=== PATIENT | female | born 1960 | race Caucasian/White ===

== ENCOUNTER 2017-06-15 12:20 | Inpatient (IN) | payer MEDICARE, MEDICAID ==
[~2017-06-15] VITALS: Ht 162.6 cm; Wt 65.0 kg
[2017-06-15] VITALS (7 sets, daily range): BP systolic 73–144; BP diastolic 50–82; PULSE 86–118; RESP 16–20; TEMP 96.8–98.9; O2SAT 94–97
[~2017-06-15 12:20] MED LIST: DICL75 PO; ZOFR4TAB3 SL
[2017-06-15] MEDS ORDERED: HYDR-3133 PO (12:33)
[2017-06-15] MEDS ORDERED: SODIUM CHLOR 0.9% 1000 ML INJ 1,000 ML IV ONE (12:36)
[2017-06-15] MEDS ORDERED: HYDR-3583 PO (12:42)
[2017-06-15] MEDS ORDERED: LORA0.5T PO (12:42)
[2017-06-15] MEDS ORDERED: SODIUM CHLORIDE 0.9% FLUSH 10 ML FLUSH IVF PRN (12:45)
--- NOTE | 2017-06-15 13:05 | RADRPT ---
EXAM DATE/TIME: 06/15/2017 12:57 [place] COMPARISON: Report only CT BRAIN W/O CONTRAST, February 20, 2013, 13:57. INDICATIONS : Trauma; fall. RADIATION DOSE: 42.43 CTDIvol (mGy) MEDICAL HISTORY : Stroke. Cardiovascular disease SURGICAL HISTORY : Hysterectomy. Cholecystectomy. ENCOUNTER: Initial ACUITY: 1 day PAIN SCALE: 5/10 LOCATION: Frontal lobe infarct again noted. cranial TECHNIQUE: Multiple contiguous axial images were obtained of the head. Using automated exposure control and adj ustment of the mA and/or kV according to patient size, radiation dose was kept as low as reasonably a chievable to obtain optimal diagnostic quality images. DICOM format image data is available electro nically for review and comparison. FINDINGS: CEREBRUM: The ventricles are normal for age. No evidence of midline shift, mass lesion, hemorrhage or acute in farction. No extra-axial fluid collections are seen. POSTERIOR FOSSA: The cerebellum and brainstem are intact. The 4th ventricle is midline. The cerebellopontine angle i s unremarkable. EXTRACRANIAL: The visualized portion of the orbits is intact. SKULL: The calvaria is intact. No evidence of skull fracture. CONCLUSION: No bleed or other acute intracranial abnormality. Old right frontal lobe infarct. Randall Cruz MD on June 15, 2017 at 13:02 Board Certified Radiologist. This report was verified electronically.
[2017-06-15 13:25] LABS: AUTOMATED NEUTROPHIL # 16.6 TH/MM3 (1.8-7.7); BASOPHIL % 0.2 % (0.0-2.0); EOSINOPHIL % 0.1 % (0.0-4.0); HEMATOCRIT 50.3 % (35.0-46.0); HEMOGLOBIN 18.2 GM/DL (11.6-15.3); LYMPH % 11.1 % (9.0-44.0); LYMPHOCYTE # 2.3 TH/MM3 (1.0-4.8); MEAN CELL VOLUME 83.9 FL (80.0-100.0); MEAN CORPUSCULAR HEMOGLOBIN 30.3 PG (27.0-34.0); MEAN PLATELET VOLUME 7.9 FL (7.0-11.0); MONO % 8.1 % (0.0-8.0); MONOCYTE # 1.7 TH/MM3 (0-0.9); NEUT % 80.5 % (16.0-70.0); PLATELET COUNT 313 TH/MM3 (150-450); RED CELL DISTRIBUTION WIDTH 12.9 % (11.6-17.2); WHITE BLOOD COUNT 20.6 TH/MM3 (4.0-11.0)
[2017-06-15 13:26] LABS: MEAN CORPUSCULAR HGB CONC 36.1 % (32.0-36.0)
[2017-06-15 13:28] LABS: PROTHROMBIN TIME - PATIENT 10.7 SEC (9.8-11.6)
[2017-06-15 13:59] LABS: ALBUMIN 3.8 GM/DL (3.4-5.0); ALKALINE PHOSPHATASE 58 U/L (45-117); ALT (GPT) 37 U/L (10-53); AST (GOT) 41 U/L (15-37); BICARBONATE 32.2 MEQ/L (21.0-32.0); BLOOD UREA NITROGEN 45 MG/DL (7-18); CALCIUM 9.2 MG/DL (8.5-10.1); CHLORIDE 72 MEQ/L (98-107); CREATININE 2.61 MG/DL (0.50-1.00); GLOMERULAR FILTRATION RATE 19 ML/MIN (>89); GLUCOSE,RANDOM 111 MG/DL (74-106); TOTAL BILIRUBIN ADULT 0.5 MG/DL (0.2-1.0); TOTAL PROTEIN 8.4 GM/DL (6.4-8.2); TROPONIN I LESS THAN 0.02 NG/ML (0.02-0.05)
[2017-06-15 14:20] LABS: SODIUM (NA) 117 MEQ/L (136-145)
[2017-06-15 14:41] LABS: BILIRUBIN, URINE NEG (NEG); BLOOD, URINE TRACE (NEG); GLUCOSE,URINE NEG (NEG); HYALINE CAST, URINE 20 /lpf (RARE); KETONE, URINE NEG (NEG); NITRITE,URINE NEG (NEG); SQUAMOUS EPITHELIAL CELL URINE <1 /hpf (0-5); URINE COLOR YELLOW (YELLW/STRAW); URINE LEUKOCYTE ESTERASE NEG (NEG)
[2017-06-15] MEDS ORDERED: NS + KCL 40 MEQ INJ 1,000 ML IV SCH (14:45)
--- NOTE | 2017-06-15 15:17 | PD ---
HPI Chief Complaint: Fall Time Seen by Provider: 12:29 Travel History International Travel<30 days: No Contact w/Intl Traveler<30days: No Traveled to known affect area: No History of Present Illness HPI 56-year-old female presents to the emergency room for evaluation of generalized weakness for the past week. Patient states she has been falling about 6 times per day. She especially feels weak after going from seated to standing position. She denies any syncopal episodes but states occasionally after falling and hitting her head, she will pass out for a second or 2. Patient denies any headache, abdominal pain, or chest pain. Denies IV drug use, upper or lower extremity paresthesias, saddle anesthesia, or loss of bowel or bladder control. She reports nausea and vomiting and has had difficulty eating over the past week. She normally ambulates with a cane because of chronic back pain. Patient takes lorazepam, Lortab, and hydroxyzine for pain. Denies any other chronic medical conditions or daily medications. PCP is Dr. Strickland. Denies history of cancer. States her sister from cancer of unknown type. Denies illicit drug use. Denies recent alcohol use; "it's been months." She does smoke cigarettes. PFSH Past Medical History Arthritis: Yes Anxiety: Yes Cardiovascular Problems: Yes Cerebrovascular Accident: Yes (1990) Diabetes: No Diminished Hearing: No GERD: Yes Genitourinary: Yes (KIDNEY STONES REMOVED ) Insomnia: Yes Kidney Stones: Yes Medical other: Yes (CHRONIC BACK PAIN) Immunizations Current: No Tetanus Vaccination: Unknown ?: Not Menopausal: Yes : 3 Para: 3 Past Surgical History Cholecystectomy: Yes Genitourinary Surgery: Yes (GALLSTONES REMOVED) Hysterectomy: Yes Social History Alcohol Use: No (QUIT) Tobacco Use: Yes Substance Use: No Allergies-Medications (Allergen,Severity, Reaction): Coded Allergies: clonazepam (Unverified Allergy, Mild, WELROSA, 03/25/17) Reported Meds & Prescriptions Reported Meds & Active Scripts Active Reported Hydrocodone-Acetaminophen 10-325 mg Tab 1 Tab PO Q6H PRN Lorazepam 0.5 Mg Tab 0.5 Mg PO Q8H PRN Hydroxyzine HCl 25 Mg Tab 25 Mg PO QID Review of Systems Except as stated in HPI: all other systems reviewed are Neg Physical Exam Narrative GENERAL: Well-nourished, well-developed female in no acute distress. Afebrile. Ambulatory with a cane. SKIN: Focused skin assessment warm/dry. Superficial abrasion to the nose. Abrasions to bilateral hands. HEAD: Normocephalic. EYES: No scleral icterus. No injection or drainage. NECK: Supple, trachea midline. No JVD or lymphadenopathy. CARDIOVASCULAR: Regular rate and rhythm without murmurs, gallops, or rubs. RESPIRATORY: Breath sounds equal bilaterally. No accessory muscle use. GASTROINTESTINAL: Abdomen soft, non-tender, nondistended. Data Data Last Documented VS Vital Signs Date Time Temp Pulse Resp B/P (MAP) Pulse Ox O2 Delivery O2 Flow Rate FiO2 06/15/17 15:20 98.3 96 20 111/59 (76) 97 Room Air Orders Orders Ct Brain W/O Iv Contrast(Rout) (06/15/17 ) Electrocardiogram (06/15/17 ) Complete Blood Count With Diff (06/15/17 12:36) Comprehensive Metabolic Panel (06/15/17 12:36) Ckmb (Isoenzyme) Profile (06/15/17 12:36) Troponin I (06/15/17 12:36) Act Partial Throm Time (Ptt) (06/15/17 12:36) Prothrombin Time / Inr (Pt) (06/15/17 12:36) Urinalysis - C+S If Indicated (06/15/17 12:36) Ecg Monitoring (06/15/17 12:36) Iv Access Insert/Monitor (06/15/17 12:36) Oximetry (06/15/17 12:36) Sodium Chloride 0.9% Flush (Ns Flush) (06/15/17 12:45) Sodium Chlor 0.9% 1000 Ml Inj (Ns 1000 M (06/15/17 12:36) Orthostatic Vital Signs (06/15/17 12:36) Alcohol (Ethanol) (06/15/17 13:15) CKMB (06/15/17 12:55) CKMB% (06/15/17 12:55) Ns + Kcl 40 Meq Inj (Ns + Kcl 40 Meq Inj (06/15/17 14:45) Admit Order (Ed Use Only) (06/15/17 15:38) Labs Laboratory Tests Test 06/15/17 12:55 06/15/17 14:17 White Blood Count 20.6 TH/MM3 Red Blood Count 6.00 MIL/MM3 Hemoglobin 18.2 GM/DL Hematocrit 50.3 % Mean Corpuscular Volume 83.9 FL Mean Corpuscular Hemoglobin 30.3 PG Mean Corpuscular Hemoglobin Concent 36.1 % Red Cell Distribution Width 12.9 % Platelet Count 313 TH/MM3 Mean Platelet Volume 7.9 FL Neutrophils (%) (Auto) 80.5 % Lymphocytes (%) (Auto) 11.1 % Monocytes (%) (Auto) 8.1 % Eosinophils (%) (Auto) 0.1 % Basophils (%) (Auto) 0.2 % Neutrophils # (Auto) 16.6 TH/MM3 Lymphocytes # (Auto) 2.3 TH/MM3 Monocytes # (Auto) 1.7 TH/MM3 Eosinophils # (Auto) 0.0 TH/MM3 Basophils # (Auto) 0.0 TH/MM3 CBC Comment AUTO DIFF Differential Comment AUTO DIFF CONFIRMED Prothrombin Time 10.7 SEC Prothromb Time International Ratio 1.0 RATIO Activated Partial Thromboplast Time 25.9 SEC Blood Urea Nitrogen 45 MG/DL Creatinine 2.61 MG/DL Random Glucose 111 MG/DL Total Protein 8.4 GM/DL Albumin 3.8 GM/DL Calcium Level 9.2 MG/DL Alkaline Phosphatase 58 U/L Aspartate Amino Transf (AST/SGOT) 41 U/L Alanine Aminotransferase (ALT/SGPT) 37 U/L Total Bilirubin 0.5 MG/DL Sodium Level 117 MEQ/L Potassium Level 2.8 MEQ/L Chloride Level 72 MEQ/L Carbon Dioxide Level 32.2 MEQ/L Anion Gap 13 MEQ/L Estimat Glomerular Filtration Rate 19 ML/MIN Total Creatine Kinase 107 U/L Creatine Kinase MB 1.7 NG/ML Troponin I LESS THAN 0.02 NG/ML Ethyl Alcohol Level LESS THAN 3 MG/DL Urine Color YELLOW Urine Turbidity CLEAR Urine pH 5.0 Urine Specific [place] 1.009 Urine Protein NEG mg/dL Urine Glucose (UA) NEG mg/dL Urine Ketones NEG mg/dL Urine Occult Blood TRACE Urine Nitrite NEG Urine Bilirubin NEG Urine Urobilinogen LESS THAN 2.0 MG/DL Urine Leukocyte Esterase NEG Urine RBC 1 /hpf Urine WBC 1 /hpf Urine Squamous Epithelial Cells <1 /hpf Urine Hyaline Casts 20 /lpf Microscopic Urinalysis Comment CATH-CULT NOT IND MDM Medical Decision Making Medical Screen Exam Complete: Yes Emergency Medical Condition: Yes Medical Record Reviewed: Yes Differential Diagnosis Electrolytes abnormality, stroke, weakness, dehydration, vertigo, orthostatic hypotension Narrative Course 56-year-old female with history of chronic low back pain presents to the emergency room for evaluation of generalized weakness and increased falls over the past week. Patient normally ambulates with a cane. States she has been falling about 6 times per day. Denies any syncopal episodes. Reports occasional, short LOC when hitting her head after falling. No focal neurological deficits. No red flag symptoms for back pain. Abdomen soft, nontender. Vital signs stable. IV access established and basic labs obtained. There is significant drop in blood pressure upon standing: from 130/65 to 73/ 50. Patient was given 1 L normal saline. CBC shows probable hemoconcentration. CMP is remarkable for severe hyponatremia and hypokalemia. Patient was given second liter normal saline with potassium. From previous, she has had marked increase in creatinine. With elevated BUN, she has prerenal azotemia causing acute kidney injury. Troponin and CK-MB are unremarkable. Alcohol is less than 3. UA is unremarkable. Patient will be admitted for severe dehydration. She understands and agrees to plan. Physician Communication Physician Communication I spoke to Dr. Reese who agrees to admit this patient to her service. Diagnosis Primary Impression: Hypokalemia Additional Impression: Hyponatremia Admitting Information Admitting Physician Requests: Admit Condition: Stable Sharmin Campbell Jun 15, 2017 15:17
--- NOTE | 2017-06-15 15:35 | PD ---
Physical Exam Date Seen by Provider: Jun 15, 2017 Time Seen by Provider: 14:00 Narrative I, Dr. Lee, have reviewed the advance practice practitioner's documentation and am in agreement, met with the patient face to face, made the diagnosis, and the medical decision making was done by me. *My assessment and Findings: Patient seen and evaluated with PA, please see PA note for further details. She presents to the ER today with general weakness, nausea, vomiting, has not been eating well. Please see PA note for further details. On exam, she is in mild distress, heart and lung exams are unremarkable. Abdomen exam is benign, soft, nontender to palpation. Laboratory Tests Test 06/15/17 12:55 06/15/17 14:17 White Blood Count 20.6 TH/MM3 (4.0-11.0) Red Blood Count 6.00 MIL/MM3 (4.00-5.30) Hemoglobin 18.2 GM/DL (11.6-15.3) Hematocrit 50.3 % (35.0-46.0) Mean Corpuscular Hemoglobin Concent 36.1 % (32.0-36.0) Neutrophils (%) (Auto) 80.5 % (16.0-70.0) Monocytes (%) (Auto) 8.1 % (0.0-8.0) Neutrophils # (Auto) 16.6 TH/MM3 (1.8-7.7) Monocytes # (Auto) 1.7 TH/MM3 (0-0.9) Blood Urea Nitrogen 45 MG/DL (7-18) Creatinine 2.61 MG/DL (0.50-1.00) Random Glucose 111 MG/DL (74-106) Total Protein 8.4 GM/DL (6.4-8.2) Aspartate Amino Transf (AST/SGOT) 41 U/L (15-37) Sodium Level 117 MEQ/L (136-145) Potassium Level 2.8 MEQ/L (3.5-5.1) Chloride Level 72 MEQ/L (98-107) Carbon Dioxide Level 32.2 MEQ/L (21.0-32.0) Estimat Glomerular Filtration Rate 19 ML/MIN (>89) Troponin I LESS THAN 0.02 NG/ML Urine Occult Blood TRACE (NEG) Last [address] 06/15/17 0000 Signed Impressions: Service Date/Time: Thursday, June 15, 2017 12:57 - CONCLUSION: No bleed or other acute intracranial abnormality. Old right frontal lobe infarct. Randall Cruz MD Lab work shows significant hypokalemia and hyponatremia. IV fluids and IV potassium was given. My plan would be to admit the patient for further treatment of her electrolyte abnormalities. Case is discussed with hospitalist admission. Data Data Last Documented VS Vital Signs Date Time Temp Pulse Resp B/P (MAP) Pulse Ox O2 Delivery O2 Flow Rate FiO2 06/15/17 15:20 98.3 96 20 111/59 (76) 97 Room Air Orders Orders Ct Brain W/O Iv Contrast(Rout) (06/15/17 ) Electrocardiogram (06/15/17 ) Complete Blood Count With Diff (06/15/17 12:36) Comprehensive Metabolic Panel (06/15/17 12:36) Ckmb (Isoenzyme) Profile (06/15/17 12:36) Troponin I (06/15/17 12:36) Act Partial Throm Time (Ptt) (06/15/17 12:36) Prothrombin Time / Inr (Pt) (06/15/17 12:36) Urinalysis - C+S If Indicated (06/15/17 12:36) Ecg Monitoring (06/15/17 12:36) Iv Access Insert/Monitor (06/15/17 12:36) Oximetry (06/15/17 12:36) Sodium Chloride 0.9% Flush (Ns Flush) (06/15/17 12:45) Sodium Chlor 0.9% 1000 Ml Inj (Ns 1000 M (06/15/17 12:36) Orthostatic Vital Signs (06/15/17 12:36) Alcohol (Ethanol) (06/15/17 13:15) CKMB (06/15/17 12:55) CKMB% (06/15/17 12:55) Ns + Kcl 40 Meq Inj (Ns + Kcl 40 Meq Inj (06/15/17 14:45) Labs Laboratory Tests Test 06/15/17 12:55 06/15/17 14:17 White Blood Count 20.6 TH/MM3 Red Blood Count 6.00 MIL/MM3 Hemoglobin 18.2 GM/DL Hematocrit 50.3 % Mean Corpuscular Volume 83.9 FL Mean Corpuscular Hemoglobin 30.3 PG Mean Corpuscular Hemoglobin Concent 36.1 % Red Cell Distribution Width 12.9 % Platelet Count 313 TH/MM3 Mean Platelet Volume 7.9 FL Neutrophils (%) (Auto) 80.5 % Lymphocytes (%) (Auto) 11.1 % Monocytes (%) (Auto) 8.1 % Eosinophils (%) (Auto) 0.1 % Basophils (%) (Auto) 0.2 % Neutrophils # (Auto) 16.6 TH/MM3 Lymphocytes # (Auto) 2.3 TH/MM3 Monocytes # (Auto) 1.7 TH/MM3 Eosinophils # (Auto) 0.0 TH/MM3 Basophils # (Auto) 0.0 TH/MM3 CBC Comment AUTO DIFF Differential Comment AUTO DIFF CONFIRMED Prothrombin Time 10.7 SEC Prothromb Time International Ratio 1.0 RATIO Activated Partial Thromboplast Time 25.9 SEC Blood Urea Nitrogen 45 MG/DL Creatinine 2.61 MG/DL Random Glucose 111 MG/DL Total Protein 8.4 GM/DL Albumin 3.8 GM/DL Calcium Level 9.2 MG/DL Alkaline Phosphatase 58 U/L Aspartate Amino Transf (AST/SGOT) 41 U/L Alanine Aminotransferase (ALT/SGPT) 37 U/L Total Bilirubin 0.5 MG/DL Sodium Level 117 MEQ/L Potassium Level 2.8 MEQ/L Chloride Level 72 MEQ/L Carbon Dioxide Level 32.2 MEQ/L Anion Gap 13 MEQ/L Estimat Glomerular Filtration Rate 19 ML/MIN Total Creatine Kinase 107 U/L Creatine Kinase MB 1.7 NG/ML Troponin I LESS THAN 0.02 NG/ML Ethyl Alcohol Level LESS THAN 3 MG/DL Urine Color YELLOW Urine Turbidity CLEAR Urine pH 5.0 Urine Specific [place] 1.009 Urine Protein NEG mg/dL Urine Glucose (UA) NEG mg/dL Urine Ketones NEG mg/dL Urine Occult Blood TRACE Urine Nitrite NEG Urine Bilirubin NEG Urine Urobilinogen LESS THAN 2.0 MG/DL Urine Leukocyte Esterase NEG Urine RBC 1 /hpf Urine WBC 1 /hpf Urine Squamous Epithelial Cells <1 /hpf Urine Hyaline Casts 20 /lpf Microscopic Urinalysis Comment CATH-CULT NOT IND MDM Medical Record Reviewed: Yes Supervised Visit with NAIF: Yes Diagnosis Primary Impression: Hyponatremia Additional Impression: Hypokalemia Admitting Information Admitting Physician Requests: Admit Condition: Stable Chhaya Lee MD Jun 15, 2017 15:35
[2017-06-15] MEDS ORDERED: SODIUM CHLORIDE 0.9% FLUSH 10 ML FLUSH IV FLUSH PRN (15:45)
[2017-06-15] MEDS ORDERED: NALOXONE HCL 0.4 MG/ML AMP IV PUSH PRN (15:45)
[2017-06-15] MEDS ORDERED: ONDANSETRON HCL 4 MG/2 ML VIAL IVP PRN (15:45)
[2017-06-15] MEDS ORDERED: LACTULOSE SYRUP 20 GM/30 ML CUP PO PRN (15:45)
[2017-06-15] MEDS ORDERED: MAGNESIUM HYDROXIDE SUSP 30 ML CUP PO PRN (15:45)
[2017-06-15] MEDS ORDERED: SENNOSIDES 8.6 MG TAB PO PRN (15:45)
[2017-06-15] MEDS ORDERED: BISACODYL 10 MG SUPP RECTAL PRN (15:45)
--- NOTE | 2017-06-15 15:59 | HHI.HP ---
HPI Service [facility] Primary Care Physician Roldan Strickland, DO Admission Diagnosis severe dehydration Diagnoses: Chief Complaint: generalized weakness, multiple falls Travel History International Travel<30 Days: No Contact w/Intl Traveler <30 Da: No Traveled to Known Affected Are: No History of Present Illness 56-year-old female with past medical history of CVA without deficit, kidney stones, anxiety, chronic back pain presents to the emergency room for evaluation of generalized weakness for the past week. Patient states she has been falling about 6 times per day. She especially feels weak after going from seated to standing position. She denies any syncopal episodes but states occasionally after falling and hitting her head, she will pass out for a second or 2. Patient denies any headache, abdominal pain, or chest pain. Denies IV drug use, upper or lower extremity paresthesias, saddle anesthesia, or loss of bowel or bladder control. She reports nausea and vomiting and has had difficulty eating over the past week. She normally ambulates with a cane because of chronic back pain. Patient takes lorazepam, Lortab, and hydroxyzine for pain. Denies any other chronic medical conditions or daily medications. PCP is Dr. Strickland. Denies history of cancer. States her sister from cancer of unknown type. Patient says she is taking water pill every other day but she doesn't recall the name of the pill. alert and oriented x4. Review of Systems Except as stated in HPI: all other systems reviewed are Neg Past Family Social History Past Medical History H/o kidney stones, h/o CVa without deficit, anxiety, chronic back pain Past Surgical History Denies surgical history Reported Medications Reported Meds & Active Scripts Active Reported Hydrocodone-Acetaminophen 10-325 mg Tab 1 Tab PO Q6H PRN Lorazepam 0.5 Mg Tab 0.5 Mg PO Q8H PRN Hydroxyzine HCl 25 Mg Tab 25 Mg PO QID Allergies: Coded Allergies: clonazepam (Unverified Allergy, Mild, WELTS, 03/25/17) Family History Mother diabetes Sister with cancer , unspecified type of cancer but she doesn't know Social History Denies alcohol use, illicit drug use or tobacco use. Physical Exam Vital Signs Vital Signs Date Time Temp Pulse Resp B/P (MAP) Pulse Ox O2 Delivery O2 Flow Rate FiO2 06/15/17 15:20 98.3 96 20 111/59 (76) 97 Room Air 06/15/17 13:17 98.3 98 17 114/82 (93) 97 Room Air 06/15/17 12:43 98 19 130/65 (86) 103 144/64 (90) 99 73/50 (58) 06/15/17 12:22 98.9 118 18 110/69 (83) 97 Room Air Physical Exam GENERAL: This is a well-nourished, well-developed patient, in no apparent distress. SKIN: No rashes, ecchymoses or lesions. Cool and dry. HEAD: Atraumatic. Normocephalic. No temporal or scalp tenderness. EYES: Pupils equal round and reactive. Extraocular motions intact. No scleral icterus. No injection or drainage. ENT: Nose without bleeding, purulent drainage or septal hematoma. Throat without erythema, tonsillar hypertrophy or exudate. Uvula midline. Airway patent. NECK: Trachea midline. No JVD or lymphadenopathy. Supple, nontender, no meningeal signs. CARDIOVASCULAR: Regular rate and rhythm without murmurs, gallops, or rubs. RESPIRATORY: Clear to auscultation. Breath sounds equal bilaterally. No wheezes , rales, or rhonchi. GASTROINTESTINAL: Abdomen soft, non-tender, nondistended. No hepato-splenomegaly , or palpable masses. No guarding. MUSCULOSKELETAL: Extremities without clubbing, cyanosis, or edema. No joint tenderness, effusion, or edema noted. No calf tenderness. Negative Homans sign bilaterally. NEUROLOGICAL: Awake and alert. Cranial nerves II through XII intact. Motor and sensory grossly within normal limits. Five out of 5 muscle strength in all muscle groups. Normal speech. Laboratory Laboratory Tests Test 06/15/17 12:55 06/15/17 14:17 White Blood Count 20.6 Red Blood Count 6.00 Hemoglobin 18.2 Hematocrit 50.3 Mean Corpuscular Volume 83.9 Mean Corpuscular Hemoglobin 30.3 Mean Corpuscular Hemoglobin Concent 36.1 Red Cell Distribution Width 12.9 Platelet Count 313 Mean Platelet Volume 7.9 Neutrophils (%) (Auto) 80.5 Lymphocytes (%) (Auto) 11.1 Monocytes (%) (Auto) 8.1 Eosinophils (%) (Auto) 0.1 Basophils (%) (Auto) 0.2 Neutrophils # (Auto) 16.6 Lymphocytes # (Auto) 2.3 Monocytes # (Auto) 1.7 Eosinophils # (Auto) 0.0 Basophils # (Auto) 0.0 CBC Comment AUTO DIFF Differential Comment AUTO DIFF CONFIRMED Prothrombin Time 10.7 Prothromb Time International Ratio 1.0 Activated Partial Thromboplast Time 25.9 Blood Urea Nitrogen 45 Creatinine 2.61 Random Glucose 111 Total Protein 8.4 Albumin 3.8 Calcium Level 9.2 Alkaline Phosphatase 58 Aspartate Amino Transf (AST/SGOT) 41 Alanine Aminotransferase (ALT/SGPT) 37 Total Bilirubin 0.5 Sodium Level 117 Potassium Level 2.8 Chloride Level 72 Carbon Dioxide Level 32.2 Anion Gap 13 Estimat Glomerular Filtration Rate 19 Total Creatine Kinase 107 Creatine Kinase MB 1.7 Troponin I LESS THAN 0.02 Ethyl Alcohol Level LESS THAN 3 Urine Color YELLOW Urine Turbidity CLEAR Urine pH 5.0 Urine Specific [place] 1.009 Urine Protein NEG Urine Glucose (UA) NEG Urine Ketones NEG Urine Occult Blood TRACE Urine Nitrite NEG Urine Bilirubin NEG Urine Urobilinogen LESS THAN 2.0 Urine Leukocyte Esterase NEG Urine RBC 1 Urine WBC 1 Urine Squamous Epithelial Cells <1 Urine Hyaline Casts 20 Microscopic Urinalysis Comment CATH-CULT NOT IND Result Diagram: 06/15/17 1255 06/15/17 1255 Imaging Last Impressions Head CT 06/15/17 0000 Signed Impressions: Service Date/Time: Thursday, June 15, 2017 12:57 - CONCLUSION: No bleed or other acute intracranial abnormality. Old right frontal lobe infarct. Randall Cruz MD Caprini VTE Risk Assessment Caprini VTE Risk Assessment: Mod/High Risk (score >= 2) Caprini Risk Assessment Model Point Value = 1 Point Value = 2 Point Value = 3 Point Value = 5 Age 41-60 Minor surgery BMI > 25 kg/m2 Swollen legs Varicose veins or History of unexplained or recurrent spontaneous Oral contraceptives or hormone replacement Sepsis (< 1 month) Serious lung disease, including pneumonia (< 1 month) Abnormal pulmonary function Acute myocardial infarction Congestive heart failure (< 1 month) History of inflammatory bowel disease Medical patient at bed rest Age 61-74 Arthroscopic surgery Major open surgery (> 45 min) Laparoscopic surgery (> 45 min) Malignancy Confined to bed (> 72 hours) Immobilizing plaster cast Central venous access Age >= 75 History of VTE Family history of VTE Factor V Leiden Prothrombin [id number] Lupus anticoagulant Anticardiolipin antibodies Elevated serum homocysteine Heparin-induced thrombocytopenia Other congenital or acquired thrombophilia Stroke (< 1 month) Elective arthroplasty Hip, pelvis, or leg fracture Acute spinal cord injury (< 1 month) Prophylaxis Regimen Total Risk Factor Score Risk Level Prophylaxis Regimen 0-1 Low Early ambulation 2 Moderate Order ONE of the following: *Sequential Compression Device (SCD) *Heparin 5000 units SQ BID 3-4 Higher Order ONE of the following medications: *Heparin 5000 units SQ TID *Enoxaparin/Lovenox 40 mg SQ daily (WT < 150 kg, CrCl > 30 mL/min) *Enoxaparin/Lovenox 30 mg SQ daily (WT < 150 kg, CrCl > 10-29 mL/min) *Enoxaparin/Lovenox 30 mg SQ BID (WT < 150 kg, CrCl > 30 mL/min) AND/OR *Sequential Compression Device (SCD) 5 or more Highest Order ONE of the following medications: *Heparin 5000 units SQ TID (Preferred with Epidurals) *Enoxaparin/Lovenox 40 mg SQ daily (WT < 150 kg, CrCl > 30 mL/min) *Enoxaparin/Lovenox 30 mg SQ daily (WT < 150 kg, CrCl > 10-29 mL/min) *Enoxaparin/Lovenox 30 mg SQ BID (WT < 150 kg, CrCl > 30 mL/min) AND *Sequential Compression Device (SCD) Assessment and Plan Assessment and Plan 56-year-old female with past medical history of CVA without deficit, kidney stones, anxiety, chronic back pain Multiple moles, generalized weakness secondary to electrolytes abnormalities Severe hypokalemia with potassium of 2.8 on admission Severe hyponatremia sodium 117 on admission Patient has a history of CVA without deficits. Chronic medical problems appear stable at this time. Monitor closely. Start IV fluids normal saline with KCl supplement. Monitor BMP every 6 hours. Monitor for fast correction and adjust fluids as needed. CT scan of the head reviewed no acute hemorrhage. Shows right frontal lobe old infarct. DVT prophylaxis with SCD/teds/Lovenox Discussed Condition With Patient, nurse, ED physician Physician Certification 2 Midnight Certification Type: Admission for Inpatient Services Order for Inpatient Services The services are ordered in accordance with Medicare regulations or non- Medicare payer requirements, as applicable. In the case of services not specified as inpatient-only, they are appropriately provided as inpatient services in accordance with the 2-midnight benchmark. Estimated LOS (days): 3 days is the estimated time the patient will need to remain in the hospital, assuming treatment plan goals are met and no additional complications. Post-Hospital Plan: Home Delia Nieto MD Jun 15, 2017 15:59
[2017-06-15] MEDS: SODIUM CHLOR 0.9% 1000 ML INJ 1,000 ML IV SCH (16:56)
[2017-06-15] MEDS: DOCUSATE SODIUM 50 MG/SENNA 8.6 MG TAB PO SCH (20:58)
[2017-06-15] MEDS: SODIUM CHLORIDE 0.9% FLUSH 10 ML FLUSH IV FLUSH SCH (20:58)
[2017-06-15] MEDS: ACETAMINOPHEN/HYDROcodone 325 MG/5 MG TAB PO PRN (21:11)
--- NOTE | 2017-06-15 21:15 | EKG ---
Date Performed: 06/15/2017 Time Performed: 13:10:23 PTAGE: 56 years EKG: SINUS TACHYCARDIA NONSPECIFIC ST ELEVATION, CONSIDER PERICARDITIS POSSIBLE PROLONGED QT INT ERVAL ABNORMAL RHYTHM ECG PREVIOUS TRACING : 02/20/2013 13.01 Compared to previous tracing, diffuse ST elevation is now p resent. DOCTOR: Ajay Chen Interpretating Date/Time 06/15/2017 21:15:07
[2017-06-16] VITALS (7 sets, daily range): BP systolic 100–136; BP diastolic 57–109; PULSE 82–95; RESP 16–18; TEMP 96–97.7; O2SAT 96–99
[2017-06-16] MEDS: ACETAMINOPHEN/HYDROcodone 325 MG/5 MG TAB PO PRN ×4 (05:24→23:45)
[2017-06-16 07:27] LABS: AUTOMATED NEUTROPHIL # 8.2 TH/MM3 (1.8-7.7); BASOPHIL % 0.3 % (0.0-2.0); EOSINOPHIL # 0.1 TH/MM3 (0-0.4); EOSINOPHIL % 0.5 % (0.0-4.0); HEMATOCRIT 42.4 % (35.0-46.0); HEMOGLOBIN 15.1 GM/DL (11.6-15.3); LYMPH % 26.4 % (9.0-44.0); LYMPHOCYTE # 3.3 TH/MM3 (1.0-4.8); MEAN CORPUSCULAR HEMOGLOBIN 30.3 PG (27.0-34.0); MEAN CORPUSCULAR HGB CONC 35.7 % (32.0-36.0); MEAN PLATELET VOLUME 7.6 FL (7.0-11.0); MONOCYTE # 0.9 TH/MM3 (0-0.9); NEUT % 65.8 % (16.0-70.0); PLATELET COUNT 245 TH/MM3 (150-450); RED BLOOD COUNT 4.98 MIL/MM3 (4.00-5.30); RED CELL DISTRIBUTION WIDTH 13.1 % (11.6-17.2); WHITE BLOOD COUNT 12.5 TH/MM3 (4.0-11.0)
[2017-06-16 08:15] LABS: CALCIUM 8.3 MG/DL (8.5-10.1); CREATININE 1.19 MG/DL (0.50-1.00)
[2017-06-16] MEDS: SODIUM CHLOR 0.9% 1000 ML INJ 1,000 ML IV SCH ×2 (08:40→23:38)
[2017-06-16] MEDS: SODIUM CHLORIDE 0.9% FLUSH 10 ML FLUSH IV FLUSH SCH ×2 (08:40→21:00)
[2017-06-16] MEDS: DOCUSATE SODIUM 50 MG/SENNA 8.6 MG TAB PO SCH ×2 (08:41→21:00)
[2017-06-16] MEDS ORDERED: POTASSIUM CHLOR 20 MEQ PREMIX 100 ML IV ONE ×2 (09:15→21:15)
[2017-06-16] MEDS ORDERED: ENALAPRILAT 1.25 MG/ML VIAL IV PUSH PRN (09:15)
[2017-06-16] MEDS: POTASSIUM CHLORIDE 20 MEQ CONTROLLED RELEASE TAB PO SCH ×3 (09:51→17:15)
[2017-06-16] MEDS ORDERED: INFLUENZA VIRUS VACCINE (QUADRIVALENT) 0.5 ML SYR IM ONE (10:00)
--- NOTE | 2017-06-16 10:13 | HHI.PR ---
Subjective Remarks The patient was complaining of pain in her right IV site. She wants to go home. She says she has been falling down a lot for the past week. She says she has has not had any medication changes recently. Objective Vitals Vital Signs Date Time Temp Pulse Resp B/P (MAP) Pulse Ox O2 Delivery O2 Flow Rate FiO2 06/16/17 08:04 96.1 86 17 130/109 (116) 99 06/16/17 04:00 97.1 92 16 103/57 (72) 97 06/16/17 00:00 96.0 86 16 100/62 (75) 97 06/15/17 22:15 88 06/15/17 20:00 97.3 86 17 114/54 (74) 95 06/15/17 17:39 06/15/17 17:25 96.8 88 16 120/73 (89) 94 06/15/17 15:20 98.3 96 20 111/59 (76) 97 Room Air 06/15/17 13:17 98.3 98 17 114/82 (93) 97 Room Air 06/15/17 12:43 98 19 130/65 (86) 103 144/64 (90) 99 73/50 (58) 06/15/17 12:22 98.9 118 18 110/69 (83) 97 Room Air I/O 06/15/17 06/15/17 06/15/17 06/16/17 06/16/17 06/16/17 07:00 15:00 23:00 07:00 15:00 23:00 Intake Total 1000 ml 480 ml 210 ml Output Total 800 ml 350 ml 800 ml Balance -800 ml 1000 ml -350 ml -320 ml 210 ml Intake Oral 480 ml IV Total 1000 ml 210 ml Output Urine Total 800 ml 350 ml 800 ml Result Diagram: 06/16/17 0641 06/16/17 0641 Imaging Last Impressions Head CT 06/15/17 0000 Signed Impressions: Service Date/Time: Thursday, June 15, 2017 12:57 - CONCLUSION: No bleed or other acute intracranial abnormality. Old right frontal lobe infarct. Randall Cruz MD Objective Remarks GENERAL: This is a well-nourished, well-developed patient, in no apparent distress. SKIN: No rashes, ecchymoses or lesions. Cool and dry. HEAD: Atraumatic. Normocephalic. No temporal or scalp tenderness. EYES: Pupils equal round and reactive. Extraocular motions intact. No scleral icterus. No injection or drainage. ENT: Nose without bleeding, purulent drainage or septal hematoma. Throat without erythema, tonsillar hypertrophy or exudate. Uvula midline. Airway patent. NECK: Trachea midline. No JVD or lymphadenopathy. Supple, nontender, no meningeal signs. CARDIOVASCULAR: Regular rate and rhythm without murmurs, gallops, or rubs. RESPIRATORY: Clear to auscultation. Breath sounds equal bilaterally. No wheezes , rales, or rhonchi. GASTROINTESTINAL: Abdomen soft, non-tender, nondistended. No hepato-splenomegaly , or palpable masses. No guarding. MUSCULOSKELETAL: Extremities without clubbing, cyanosis, or edema. No joint tenderness, effusion, or edema noted. NEUROLOGICAL: Awake and alert. Cranial nerves II through XII intact. Motor and sensory grossly within normal limits. Five out of 5 muscle strength in all muscle groups. Normal speech. PSYCH: Mood and affect appropriate. Medications and IVs Current Medications Medications (Trade) Dose Ordered Sig/Mouna Route Start Time Stop Time Status Last Admin (NS Flush) 2 ml UNSCH PRN IVF 06/15/17 12:45 Sodium Chloride 1,000 ml @ 60 mls/hr [id number] IV 06/15/17 15:38 06/16/17 08:40 (NS Flush) 2 ml UNSCH PRN IV FLUSH 06/15/17 15:45 (NS Flush) 2 ml BID IV FLUSH 06/15/17 21:00 (Zofran Inj) 4 mg Q6H PRN IVP 06/15/17 15:45 (Narcan Inj) 0.4 mg UNSCH PRN IV PUSH 06/15/17 15:45 (Monica-Colace) 1 tab BID PO 06/15/17 21:00 06/16/17 08:41 (Milk Of Magnesia Liq) 30 ml Q12H PRN PO 06/15/17 15:45 (Senokot) 17.2 mg Q12H PRN PO 06/15/17 15:45 (Dulcolax Supp) 10 mg DAILY PRN RECTAL 06/15/17 15:45 (Lactulose Liq) 30 ml DAILY PRN PO 06/15/17 15:45 ([place] 5-325 Mg) 1 tab Q6H PRN PO 06/15/17 16:45 06/16/17 05:24 (KCl) 40 meq Q4H PO 06/16/17 09:15 06/16/17 17:16 06/16/17 09:51 Potassium Chloride 100 ml @ 50 mls/hr BOLUS ONCE IV 06/16/17 09:15 06/16/17 11:14 06/16/17 09:51 (Vasotec Inj) 1.25 mg Q6H PRN IV PUSH 06/16/17 09:15 A/P Assessment and Plan 56-year-old female with past medical history of CVA without deficit, kidney stones, anxiety, chronic back pain Multiple falls, generalized weakness/ Orthostatic hypotension Likely s/t decreased PO intake. Markedly orthostatic. - increase PO intake. Add Ensure. - PT. - reduce home benzo dose. Severe hypokalemia/ Severe hyponatremia Na 117 on admission. K 2.2 06/16. Sodium improving. - PO and IV potassium replacement. - follow BMP q6h. - telemetry. - neuro checks. - encourage PO intake. - check mag and phos levels. Acute renal failure Likely prerenal secondary to dehydration. - Status post IV fluids. - Encourage by mouth intake. - Avoid nephrotoxic agents. Leukocytosis Possibly a stress reaction. UA unremarkable. - Check a chest x-ray. Patient has a history of CVA without deficits CT scan of the head reviewed no acute hemorrhage; Shows right frontal lobe old infarct. - PT. DVT prophylaxis with SCD/teds/Lovenox Discharge Planning Awaiting clinical improvement Lai Lagos DO Jun 16, 2017 10:13
[2017-06-16] MEDS ORDERED: LORazepam 0.5 MG TAB PO PRN (11:00)
[2017-06-16 20:03] LABS: BICARBONATE 34.1 MEQ/L (21.0-32.0); CALCIUM 8.7 MG/DL (8.5-10.1); CREATININE 0.93 MG/DL (0.50-1.00)
[2017-06-16] MEDS ORDERED: POTASSIUM CHLORIDE 10 MEQ CONTROLLED RELEASE TAB PO ONE (22:30)
[2017-06-17 00:20] VITALS: BP 106/58; PULSE 90; RESP 18; TEMP 98.2; O2SAT 97
[2017-06-17 01:29] LABS: BICARBONATE 34.2 MEQ/L (21.0-32.0); CALCIUM 8.3 MG/DL (8.5-10.1); CREATININE 0.85 MG/DL (0.50-1.00)
[2017-06-17 04:36] VITALS: BP 101/59; PULSE 87; RESP 18; TEMP 97.8; O2SAT 98
[2017-06-17 06:19] LABS: BICARBONATE 31.5 MEQ/L (21.0-32.0); CALCIUM 8.5 MG/DL (8.5-10.1); CREATININE 0.77 MG/DL (0.50-1.00)
[2017-06-17 08:00] VITALS: BP 100/56; PULSE 74; PULSE 80; RESP 16; TEMP 96.8; O2SAT 99
[2017-06-17] MEDS: DOCUSATE SODIUM 50 MG/SENNA 8.6 MG TAB PO SCH (08:43)
[2017-06-17] MEDS: SODIUM CHLORIDE 0.9% FLUSH 10 ML FLUSH IV FLUSH SCH (08:43)
[2017-06-17] MEDS ORDERED: POTASSIUM CHLORIDE 10 MEQ CAP PO ONE (09:30)
[2017-06-17 12:00] VITALS: BP 99/60; PULSE 85; RESP 16; TEMP 97.6; O2SAT 96
[2017-06-17] MEDS ORDERED: LORA0.5T PO (12:32)
[2017-06-17] MEDS ORDERED: GETGO ROLLING W1 MI1 (12:33)
--- NOTE | 2017-06-17 12:33 | HHI.DCPOC ---
Discharge Care Plan Diagnosis: (1) Leukocytosis (2) Hypokalemia (3) Hyponatremia (4) Orthostatic hypotension Goals to Promote Your Health * To prevent worsening of your condition and complications * To maintain your health at the optimal level Directions to Meet Your Goals Take your medications as prescribed Follow your dietary instruction Follow activity as directed Keep your appointments as scheduled Take your immunizations and boosters as scheduled If your symptoms worsen call your PCP, if no PCP go to Urgent Care Center or Emergency Room Smoking is Dangerous to Your Health. Avoid second hand smoke Call the 24-hour hour crisis hotline for domestic abuse at Lai Lagos DO Jun 17, 2017 12:33
--- NOTE | 2017-06-17 12:33 | HHI.DCPOC ---
Discharge Care Plan Diagnosis: (1) Leukocytosis (2) Hypokalemia (3) Hyponatremia (4) Orthostatic hypotension Goals to Promote Your Health * To prevent worsening of your condition and complications * To maintain your health at the optimal level Directions to Meet Your Goals Take your medications as prescribed Follow your dietary instruction Follow activity as directed Keep your appointments as scheduled Take your immunizations and boosters as scheduled If your symptoms worsen call your PCP, if no PCP go to Urgent Care Center or Emergency Room Smoking is Dangerous to Your Health. Avoid second hand smoke Call the 24-hour hour crisis hotline for domestic abuse at Lai Lagos DO Jun 17, 2017 12:33
--- NOTE | 2017-06-17 12:33 | HHI.DCPOC ---
Discharge Care Plan Diagnosis: (1) Leukocytosis (2) Hypokalemia (3) Hyponatremia (4) Orthostatic hypotension Goals to Promote Your Health * To prevent worsening of your condition and complications * To maintain your health at the optimal level Directions to Meet Your Goals Take your medications as prescribed Follow your dietary instruction Follow activity as directed Keep your appointments as scheduled Take your immunizations and boosters as scheduled If your symptoms worsen call your PCP, if no PCP go to Urgent Care Center or Emergency Room Smoking is Dangerous to Your Health. Avoid second hand smoke Call the 24-hour hour crisis hotline for domestic abuse at Lai Lagos DO Jun 17, 2017 12:33
--- NOTE | 2017-06-17 12:36 | HHI.FF ---
Face to Face Verification Diagnosis: (1) Orthostatic hypotension (2) Hypokalemia (3) Hyponatremia (4) Leukocytosis Physical Therapy Order: Evaluate and Treat, Improve ambulation, Strength and gait training Home Health Nursing Order: Medical education Signs/symptoms of disease process Medication education-adverse effect Nursing assessment with vital signs I have seen patient Carmelina Posey on 06/17/17. My clinical findings support the need for the requested home health care services because: Deconditioned w/ increased weakness High risk of falls I certify that my clinical findings support that this patient is homebound because: Unsteady gait/balance Unsafe to leave home unassisted Lai Lagos DO Jun 17, 2017 12:36
[2017-06-17] MEDS ORDERED: POTA-163 PO (12:38)
--- NOTE | 2017-06-17 12:42 | HHI.PR ---
Subjective Remarks The patient was feeling well. She wanted to go home. She said she is eating and has been ambulating. She feels better. She says she will be able to follow up with her primary care doctor. Discussed with nursing at the bedside. Objective Vitals Vital Signs Date Time Temp Pulse Resp B/P (MAP) Pulse Ox O2 Delivery O2 Flow Rate FiO2 06/17/17 08:00 96.8 74 16 100/56 (71) 99 06/17/17 04:36 97.8 87 18 101/59 (73) 98 06/17/17 00:20 98.2 90 18 106/58 (74) 97 06/16/17 20:41 97.7 95 18 136/75 (95) 97 06/16/17 16:00 96.3 94 16 103/58 (73) 98 I/O 06/16/17 06/16/17 06/16/17 06/17/17 06/17/17 06/17/17 07:00 15:00 23:00 07:00 15:00 23:00 Intake Total 480 ml 770 ml 240 ml 120 ml Output Total 800 ml Balance -320 ml 770 ml 240 ml 120 ml Intake Oral 480 ml 360 ml 240 ml 120 ml IV Total 410 ml Output Urine Total 800 ml # Voids 1 2 1 # Bowel Movements 1 1 1 Result Diagram: 06/16/17 0641 06/17/17 0422 Imaging Last Impressions Head CT 06/15/17 0000 Signed Impressions: Service Date/Time: Thursday, June 15, 2017 12:57 - CONCLUSION: No bleed or other acute intracranial abnormality. Old right frontal lobe infarct. Randall Cruz MD Objective Remarks GENERAL: This is a well-nourished, well-developed patient, in no apparent distress. SKIN: No rashes, ecchymoses or lesions. Cool and dry. HEAD: Atraumatic. Normocephalic. No temporal or scalp tenderness. EYES: Pupils equal round and reactive. Extraocular motions intact. No scleral icterus. No injection or drainage. ENT: Nose without bleeding, purulent drainage or septal hematoma. Throat without erythema, tonsillar hypertrophy or exudate. Uvula midline. Airway patent. NECK: Trachea midline. No JVD or lymphadenopathy. Supple, nontender, no meningeal signs. CARDIOVASCULAR: Regular rate and rhythm without murmurs, gallops, or rubs. RESPIRATORY: Clear to auscultation. Breath sounds equal bilaterally. No wheezes , rales, or rhonchi. GASTROINTESTINAL: Abdomen soft, non-tender, nondistended. No hepato-splenomegaly , or palpable masses. No guarding. MUSCULOSKELETAL: Extremities without clubbing, cyanosis, or edema. No joint tenderness, effusion, or edema noted. NEUROLOGICAL: Awake and alert. Cranial nerves II through XII intact. Motor and sensory grossly within normal limits. Five out of 5 muscle strength in all muscle groups. Normal speech. PSYCH: Mood and affect appropriate. Procedures None Medications and IVs Current Medications Medications (Trade) Dose Ordered Sig/Mouna Route Start Time Stop Time Status Last Admin (NS Flush) 2 ml UNSCH PRN IVF 06/15/17 12:45 Sodium Chloride 1,000 ml @ 60 mls/hr [id number] IV 06/15/17 15:38 06/16/17 23:38 (NS Flush) 2 ml UNSCH PRN IV FLUSH 06/15/17 15:45 (NS Flush) 2 ml BID IV FLUSH 06/15/17 21:00 (Zofran Inj) 4 mg Q6H PRN IVP 06/15/17 15:45 (Narcan Inj) 0.4 mg UNSCH PRN IV PUSH 06/15/17 15:45 (Monica-Colace) 1 tab BID PO 06/15/17 21:00 06/17/17 08:43 (Milk Of Magnesia Liq) 30 ml Q12H PRN PO 06/15/17 15:45 (Senokot) 17.2 mg Q12H PRN PO 06/15/17 15:45 (Dulcolax Supp) 10 mg DAILY PRN RECTAL 06/15/17 15:45 (Lactulose Liq) 30 ml DAILY PRN PO 06/15/17 15:45 ([place] 5-325 Mg) 1 tab Q6H PRN PO 06/15/17 16:45 06/16/17 23:45 (Vasotec Inj) 1.25 mg Q6H PRN IV PUSH 06/16/17 09:15 (Ativan) 0.5 mg Q12H PRN PO 06/16/17 11:00 A/P Assessment and Plan 56-year-old female with past medical history of CVA without deficit, kidney stones, anxiety, chronic back pain Multiple falls, generalized weakness/ Orthostatic hypotension Likely s/t decreased PO intake. Markedly orthostatic. Improved with IVFs and increased diet. - increase PO intake. Add Ensure. - PT. - reduce home benzo dose. Severe hypokalemia/ Severe hyponatremia Na 117 on admission. K 2.2 06/16. Sodium improving. Potassium level normal 06/17. - PO and IV potassium replacement. - follow BMP, mag, phos in 2-3 days. - KCl supplementation on discharge. - encourage PO intake. Acute renal failure Likely prerenal secondary to dehydration. Resolved. - Status post IV fluids. - Encourage by mouth intake. - Avoid nephrotoxic agents. Leukocytosis Possibly a stress reaction. UA unremarkable. Afebrile. Improving. - repeat CBC in 2-3 days. Patient has a history of CVA without deficits CT scan of the head reviewed no acute hemorrhage; Shows right frontal lobe old infarct. - PT. Home with [facility] being arranged. DVT prophylaxis with SCD/teds/Lovenox Discharge Planning D/c home with [facility] Lai Lagos DO Jun 17, 2017 12:42
--- NOTE | 2017-06-17 12:42 | HHI.PR ---
Subjective Remarks The patient was feeling well. She wanted to go home. She said she is eating and has been ambulating. She feels better. She says she will be able to follow up with her primary care doctor. Discussed with nursing at the bedside. Objective Vitals Vital Signs Date Time Temp Pulse Resp B/P (MAP) Pulse Ox O2 Delivery O2 Flow Rate FiO2 06/17/17 08:00 96.8 74 16 100/56 (71) 99 06/17/17 04:36 97.8 87 18 101/59 (73) 98 06/17/17 00:20 98.2 90 18 106/58 (74) 97 06/16/17 20:41 97.7 95 18 136/75 (95) 97 06/16/17 16:00 96.3 94 16 103/58 (73) 98 I/O 06/16/17 06/16/17 06/16/17 06/17/17 06/17/17 06/17/17 07:00 15:00 23:00 07:00 15:00 23:00 Intake Total 480 ml 770 ml 240 ml 120 ml Output Total 800 ml Balance -320 ml 770 ml 240 ml 120 ml Intake Oral 480 ml 360 ml 240 ml 120 ml IV Total 410 ml Output Urine Total 800 ml # Voids 1 2 1 # Bowel Movements 1 1 1 Result Diagram: 06/16/17 0641 06/17/17 0422 Imaging Last Impressions Head CT 06/15/17 0000 Signed Impressions: Service Date/Time: Thursday, June 15, 2017 12:57 - CONCLUSION: No bleed or other acute intracranial abnormality. Old right frontal lobe infarct. Randall Cruz MD Objective Remarks GENERAL: This is a well-nourished, well-developed patient, in no apparent distress. SKIN: No rashes, ecchymoses or lesions. Cool and dry. HEAD: Atraumatic. Normocephalic. No temporal or scalp tenderness. EYES: Pupils equal round and reactive. Extraocular motions intact. No scleral icterus. No injection or drainage. ENT: Nose without bleeding, purulent drainage or septal hematoma. Throat without erythema, tonsillar hypertrophy or exudate. Uvula midline. Airway patent. NECK: Trachea midline. No JVD or lymphadenopathy. Supple, nontender, no meningeal signs. CARDIOVASCULAR: Regular rate and rhythm without murmurs, gallops, or rubs. RESPIRATORY: Clear to auscultation. Breath sounds equal bilaterally. No wheezes , rales, or rhonchi. GASTROINTESTINAL: Abdomen soft, non-tender, nondistended. No hepato-splenomegaly , or palpable masses. No guarding. MUSCULOSKELETAL: Extremities without clubbing, cyanosis, or edema. No joint tenderness, effusion, or edema noted. NEUROLOGICAL: Awake and alert. Cranial nerves II through XII intact. Motor and sensory grossly within normal limits. Five out of 5 muscle strength in all muscle groups. Normal speech. PSYCH: Mood and affect appropriate. Procedures None Medications and IVs Current Medications Medications (Trade) Dose Ordered Sig/Mouna Route Start Time Stop Time Status Last Admin (NS Flush) 2 ml UNSCH PRN IVF 06/15/17 12:45 Sodium Chloride 1,000 ml @ 60 mls/hr [id number] IV 06/15/17 15:38 06/16/17 23:38 (NS Flush) 2 ml UNSCH PRN IV FLUSH 06/15/17 15:45 (NS Flush) 2 ml BID IV FLUSH 06/15/17 21:00 (Zofran Inj) 4 mg Q6H PRN IVP 06/15/17 15:45 (Narcan Inj) 0.4 mg UNSCH PRN IV PUSH 06/15/17 15:45 (Monica-Colace) 1 tab BID PO 06/15/17 21:00 06/17/17 08:43 (Milk Of Magnesia Liq) 30 ml Q12H PRN PO 06/15/17 15:45 (Senokot) 17.2 mg Q12H PRN PO 06/15/17 15:45 (Dulcolax Supp) 10 mg DAILY PRN RECTAL 06/15/17 15:45 (Lactulose Liq) 30 ml DAILY PRN PO 06/15/17 15:45 ([place] 5-325 Mg) 1 tab Q6H PRN PO 06/15/17 16:45 06/16/17 23:45 (Vasotec Inj) 1.25 mg Q6H PRN IV PUSH 06/16/17 09:15 (Ativan) 0.5 mg Q12H PRN PO 06/16/17 11:00 A/P Assessment and Plan 56-year-old female with past medical history of CVA without deficit, kidney stones, anxiety, chronic back pain Multiple falls, generalized weakness/ Orthostatic hypotension Likely s/t decreased PO intake. Markedly orthostatic. Improved with IVFs and increased diet. - increase PO intake. Add Ensure. - PT. - reduce home benzo dose. Severe hypokalemia/ Severe hyponatremia Na 117 on admission. K 2.2 06/16. Sodium improving. Potassium level normal 06/17. - PO and IV potassium replacement. - follow BMP, mag, phos in 2-3 days. - KCl supplementation on discharge. - encourage PO intake. Acute renal failure Likely prerenal secondary to dehydration. Resolved. - Status post IV fluids. - Encourage by mouth intake. - Avoid nephrotoxic agents. Leukocytosis Possibly a stress reaction. UA unremarkable. Afebrile. Improving. - repeat CBC in 2-3 days. Patient has a history of CVA without deficits CT scan of the head reviewed no acute hemorrhage; Shows right frontal lobe old infarct. - PT. Home with [facility] being arranged. DVT prophylaxis with SCD/teds/Lovenox Discharge Planning D/c home with [facility] Lai Lagos DO Jun 17, 2017 12:42
[2017-06-17 14:44] LABS: BICARBONATE 34.3 MEQ/L (21.0-32.0); CALCIUM 9.3 MG/DL (8.5-10.1); CREATININE 0.61 MG/DL (0.50-1.00)
[2017-06-17 22:43] LABS: PHOSPHORUS 1.1 MG/DL (2.5-4.9)
== END 2017-06-17 14:46 | disposition home health service (06) | DRG 683 ==
LOC: NEPC 12:20 → NEDA 15:40 → N06B 17:22
PROVIDERS: ADMIT Hospitalist; ATTEND Hospitalist
DX: N17.9 Acute kidney failure, unspecified (principal); E87.1 Hypo-osmolality and hyponatremia; E86.0 Dehydration; E87.6 Hypokalemia; F17.210 Nicotine dependence, cigarettes, uncomplicated; G89.29 Other chronic pain; M54.5 Low back pain; R29.6 Repeated falls; M19.90 Unspecified osteoarthritis, unspecified site; F41.9 Anxiety disorder, unspecified; K21.9 Gastro-esophageal reflux disease without esophagitis; I95.1 Orthostatic hypotension; Z86.73 Personal history of transient ischemic attack (TIA), and cerebral infarction without residual deficits; Z23 Encounter for immunization
CPT/HCPCS: 70450; 80048; 80053; 80307; 81001; 82550; 82552; 83735; 84100; 84484; 85025; 85610; 85730; 90686; 93005; 96361; 96365; J3480; J7030; Q2038

== ENCOUNTER 2017-06-20 20:17 | Emergency (ER) | payer MEDICARE, MEDICAID ==
[~2017-06-20] VITALS: Ht 162.6 cm; Wt 62.0 kg
[~2017-06-20 20:17] MED LIST changes: -DICL75 PO; +GETGO ROLLING W1 MI1; +HYDR-3133 PO; +HYDR-3583 PO; +LORA0.5T PO; +POTA-163 PO; -ZOFR4TAB3 SL
[2017-06-20 20:18] VITALS: BP 139/79; PULSE 109; RESP 16; TEMP 98.6; O2SAT 97
[2017-06-20] MEDS ORDERED: SODIUM CHLORIDE 0.9% FLUSH 10 ML FLUSH IVF PRN (20:45)
--- NOTE | 2017-06-20 20:49 | PD ---
HPI Chief Complaint: Abnormal Results Time Seen by Provider: 20:38 Travel History International Travel<30 days: No Contact w/Intl Traveler<30days: No Traveled to known affect area: No History of Present Illness HPI 56-year-old female with PMH of hypertension, DM T2 presents to the ED for evaluation of abnormal lab value. Patient states that she was recently discharged from the hospital after being admitted for severe dehydration. She states that she had labs to get home today and was called and told to come to the emergency room for low potassium. On presentation the patient has no somatic complaints. She denies headaches, dizziness, fevers, chills, chest pain , palpitations, shortness of breath, abdominal pain, dysuria, back pain. She endorses a single episode of nonbloody, nonbilious vomiting today. She denies nausea on presentation. She endorses increased lower extremity edema. She endorses compliance with her daily medications. She is followed by Dr. Strickland. [facility] Past Medical History Arthritis: Yes Asthma: Yes Anxiety: Yes Cardiovascular Problems: Yes COPD: Yes Cerebrovascular Accident: Yes (1990) Diabetes: No Diminished Hearing: No GERD: Yes Genitourinary: Yes (KIDNEY STONES REMOVED ) Insomnia: Yes Kidney Stones: Yes Immunizations Current: No Seizures: Yes Menopausal: Yes : 3 Para: 3 Past Surgical History Cholecystectomy: Yes Genitourinary Surgery: Yes (GALLSTONES REMOVED) Hysterectomy: Yes Social History Alcohol Use: No (QUIT) Tobacco Use: Yes (2 CIG PER DAY) Substance Use: No Allergies-Medications (Allergen,Severity, Reaction): Coded Allergies: clonazepam (Unverified Allergy, Mild, [place], 06/20/17) Reported Meds & Prescriptions Reported Meds & Active Scripts Active Macrobid (Nitrofurantoin Monoh/Nitrofur Macro) 100 Mg Cap 100 Mg PO BID 7 Days Potassium Chloride ER (Potassium Chloride) 20 Meq Tab 20 Meq PO BID Walker Rolling/GetGo (Device) 1 Mis Mis Ea .ROUTE DIRECTED Lorazepam 0.5 Mg Tab 0.5 Mg PO BID PRN Decrease to twice daily and try to wean off gradually Reported Hydrocodone-Acetaminophen 10-325 mg Tab 1 Tab PO Q6H PRN Hydroxyzine HCl 25 Mg Tab 25 Mg PO QID Review of Systems Except as stated in HPI: all other systems reviewed are Neg Physical Exam Narrative GENERAL: Well-nourished, well-developed white female in no acute distress. SKIN: Focused skin assessment warm/dry. 2 cm laceration over left eye with Steri-Strips in place. No active bleeding or signs of infection. HEAD: Normocephalic. EYES: No scleral icterus. No injection or drainage. NECK: Supple, trachea midline. No JVD or lymphadenopathy. CARDIOVASCULAR: Regular rate and rhythm without murmurs, gallops, or rubs. RESPIRATORY: Breath sounds clear and equal bilaterally. No accessory muscle use. GASTROINTESTINAL: Abdomen soft, non-tender, nondistended. Active bowel sounds. MUSCULOSKELETAL: No cyanosis, or edema. BACK: Nontender without obvious deformity. No CVA tenderness. Data Data Last Documented VS Vital Signs Date Time Temp Pulse Resp B/P (MAP) Pulse Ox O2 Delivery O2 Flow Rate FiO2 06/20/17 21:57 98 Room Air 06/20/17 20:18 98.6 109 16 Orders Orders Electrocardiogram (06/20/17 20:36) Complete Blood Count With Diff (06/20/17 20:36) Comprehensive Metabolic Panel (06/20/17 20:36) Magnesium (Mg) (06/20/17 20:36) Prothrombin Time / Inr (Pt) (06/20/17 20:36) Act Partial Throm Time (Ptt) (06/20/17 20:36) Troponin I (06/20/17 20:36) Chest, Single Ap (06/20/17 20:36) Ecg Monitoring (06/20/17 20:36) Bilateral Bp Monitoring (06/20/17 20:36) Iv Access Insert/Monitor (06/20/17 20:36) Oximetry (06/20/17 20:36) Sodium Chloride 0.9% Flush (Ns Flush) (06/20/17 20:45) Urinalysis - C+S If Indicated (06/20/17 21:01) Urine Culture (06/20/17 21:00) Potassium Chloride (Kcl) (06/20/17 21:45) Ed Discharge Order (06/20/17 21:53) Labs Laboratory Tests Test 06/20/17 20:45 06/20/17 21:00 White Blood Count 10.2 TH/MM3 Red Blood Count 4.17 MIL/MM3 Hemoglobin 12.6 GM/DL Hematocrit 35.9 % Mean Corpuscular Volume 86.2 FL Mean Corpuscular Hemoglobin 30.3 PG Mean Corpuscular Hemoglobin Concent 35.1 % Red Cell Distribution Width 12.7 % Platelet Count 342 TH/MM3 Mean Platelet Volume 6.7 FL Neutrophils (%) (Auto) 62.0 % Lymphocytes (%) (Auto) 28.9 % Monocytes (%) (Auto) 7.0 % Eosinophils (%) (Auto) 1.5 % Basophils (%) (Auto) 0.6 % Neutrophils # (Auto) 6.3 TH/MM3 Lymphocytes # (Auto) 2.9 TH/MM3 Monocytes # (Auto) 0.7 TH/MM3 Eosinophils # (Auto) 0.1 TH/MM3 Basophils # (Auto) 0.1 TH/MM3 CBC Comment DIFF FINAL Differential Comment Prothrombin Time 10.0 SEC Prothromb Time International Ratio 0.9 RATIO Activated Partial Thromboplast Time 25.7 SEC Blood Urea Nitrogen 11 MG/DL Creatinine 0.92 MG/DL Random Glucose 85 MG/DL Total Protein 6.0 GM/DL Albumin 2.9 GM/DL Calcium Level 8.3 MG/DL Magnesium Level 1.5 MG/DL Alkaline Phosphatase 51 U/L Aspartate Amino Transf (AST/SGOT) 23 U/L Alanine Aminotransferase (ALT/SGPT) 27 U/L Total Bilirubin 0.2 MG/DL Sodium Level 134 MEQ/L Potassium Level 2.8 MEQ/L Chloride Level 95 MEQ/L Carbon Dioxide Level 30.8 MEQ/L Anion Gap 8 MEQ/L Estimat Glomerular Filtration Rate 63 ML/MIN Troponin I LESS THAN 0.02 NG/ML Urine Color LIGHT-YELLOW Urine Turbidity CLEAR Urine pH 7.0 Urine Specific [place] 1.008 Urine Protein NEG mg/dL Urine Glucose (UA) NEG mg/dL Urine Ketones NEG mg/dL Urine Occult Blood NEG Urine Nitrite NEG Urine Bilirubin NEG Urine Urobilinogen LESS THAN 2.0 MG/DL Urine Leukocyte Esterase LARGE Urine RBC 1 /hpf Urine WBC 65 /hpf Urine Squamous Epithelial Cells 1 /hpf Urine Transitional Epithelial Cells 8 /hpf Urine Bacteria RARE /hpf Microscopic Urinalysis Comment CULTURE INDICATED MDM Medical Decision Making Medical Screen Exam Complete: Yes Emergency Medical Condition: Yes Differential Diagnosis Hypokalemia versus hypomagnesemia versus arrhythmia versus dehydration versus other Narrative Course 56-year-old female with PMH of hypertension, DM T2 presents to the ED for evaluation of abnormal lab value. Patient states that she was recently discharged from the hospital after being admitted for severe dehydration. She states that she had labs to get home today and was called and told to come to the emergency room for low potassium. On presentation the patient has no somatic complaints. She denies headaches, dizziness, fevers, chills, chest pain , palpitations, shortness of breath, abdominal pain, dysuria, back pain. She states she "may have missed a few doses" of her daily oral potassium. She is followed by Dr. Strickland. Vitals reviewed. Patient's tachycardic on presentation. Physical exam reveals a nontoxic-appearing white female in no acute. Chest is CTAB. Abdomen soft, nontender. No lower extremity edema. No CVA tenderness. EKG: Rate 106, sinus tachycardia. CT interval 1:30, Q RS 86, QTc 385 ms. Normal axis. No ST changes. Reviewed by Dr. Pineda. CXR: No acute disease. Cardiac enzymes negative 1. CBC unremarkable. CMP: Potassium 2.8 UA: Large leukocyte esterase, 65 WBCs, rare bacteria. Patient was administered 40 mEq potassium by mouth. She has home health 3 days a week right now and close follow-up with Dr. Strickland. She is provided a prescription for Macrobid 100 mg twice a day 7 days. She is instructed to take all her medications as prescribed, follow up as planned. She is stable and discharged home. Diagnosis Primary Impression: Hypokalemia Additional Impression: Urinary tract infection Qualified Codes: N39.0 - Urinary tract infection, site not specified Referrals: Primary Care Physician Patient Instructions: General Instructions, Hypokalemia (ED), Urinary Tract Infection in Women (ED) Additional Instructions: Rest, hydrate. Resume normal, gentle activities as tolerated. Continue with home medications, including oral potassium, as prescribed. Take all antibiotics as prescribed. Follow-up with the primary care as discussed. Return to the ED for any urgent or emergent medical condition. Med/Other Pt SpecificInfo: Prescription(s) given Scripts Nitrofurantoin Monohydrate Macrocrystals (Macrobid) 100 Mg Cap 100 MG PO BID for Infection for 7 Days, #14 CAP 0 Refills Prov: Sam Pineda MD 06/20/17 Disposition: 01 DISCHARGE HOME Condition: Stable Marcelina Dimas Jun 20, 2017 20:49
[2017-06-20 21:11] LABS: AUTOMATED NEUTROPHIL # 6.3 TH/MM3 (1.8-7.7); BASOPHIL # 0.1 TH/MM3 (0-0.2); BASOPHIL % 0.6 % (0.0-2.0); EOSINOPHIL # 0.1 TH/MM3 (0-0.4); EOSINOPHIL % 1.5 % (0.0-4.0); HEMATOCRIT 35.9 % (35.0-46.0); HEMO FLAGS DIFF FINAL; LYMPH % 28.9 % (9.0-44.0); LYMPHOCYTE # 2.9 TH/MM3 (1.0-4.8); MEAN CELL VOLUME 86.2 FL (80.0-100.0); MEAN CORPUSCULAR HEMOGLOBIN 30.3 PG (27.0-34.0); MEAN CORPUSCULAR HGB CONC 35.1 % (32.0-36.0); PLATELET COUNT 342 TH/MM3 (150-450); RED BLOOD COUNT 4.17 MIL/MM3 (4.00-5.30); RED CELL DISTRIBUTION WIDTH 12.7 % (11.6-17.2); WHITE BLOOD COUNT 10.2 TH/MM3 (4.0-11.0)
[2017-06-20 21:23] LABS: APTT (PATIENT) 25.7 SEC (24.3-30.1); INTERNATIONAL NORMALIZED RATIO 0.9 RATIO
[2017-06-20 21:34] LABS: BACTERIA, URINE RARE /hpf; BLOOD, URINE NEG (NEG); COMMENT (UR) CULTURE INDICATED; CULTURE IF INDICATED CULTURE INDICATED; GLUCOSE,URINE NEG (NEG); KETONE, URINE NEG (NEG); NITRITE,URINE NEG (NEG); SQUAMOUS EPITHELIAL CELL URINE 1 /hpf (0-5); TRANSITIONAL EPI CELLS, URINE 8 /hpf; URINE COLOR LIGHT-YELLOW (YELLW/STRAW)
[2017-06-20 21:34] LABS: ALKALINE PHOSPHATASE 51 U/L (45-117); ALT (GPT) 27 U/L (10-53); ANION GAP 8 MEQ/L (5-15); AST (GOT) 23 U/L (15-37); BICARBONATE 30.8 MEQ/L (21.0-32.0); BLOOD UREA NITROGEN 11 MG/DL (7-18); CHLORIDE 95 MEQ/L (98-107); GLOMERULAR FILTRATION RATE 63 ML/MIN (>89); MAGNESIUM 1.5 MG/DL (1.5-2.5); SODIUM (NA) 134 MEQ/L (136-145); TOTAL BILIRUBIN ADULT 0.2 MG/DL (0.2-1.0)
[2017-06-20 21:42] LABS: POTASSIUM 2.8 MEQ/L (3.5-5.1)
[2017-06-20] MEDS ORDERED: POTASSIUM CHLORIDE 20 MEQ CONTROLLED RELEASE TAB PO ONE (21:45)
[2017-06-20] MEDS ORDERED: MACR100C2 PO (21:53)
--- NOTE | 2017-06-20 21:55 | RADRPT ---
EXAM DATE/TIME: 06/20/2017 21:03 [facility] COMPARISON: CHEST SINGLE AP, February 20, 2013, 13:37. INDICATIONS : Chest pain. MEDICAL HISTORY : Chronic obstructive pulmonary disease. SURGICAL HISTORY : None. ENCOUNTER: Initial ACUITY: 3 days PAIN SCORE: 5/10 LOCATION: chest FINDINGS: A single view of the chest demonstrates the lungs to be symmetrically aerated without evidence of mas s, infiltrate or effusion. Linear scarring within the lingula. The cardiomediastinal contours are un remarkable. Osseous structures are intact. Scoliotic curvature noted. CONCLUSION: No acute disease. Dominick Ulloa Jr., MD on June 20, 2017 at 21:52 Board Certified Radiologist. This report was verified electronically.
[2017-06-20 21:57] VITALS: O2SAT 98
--- NOTE | 2017-06-20 22:00 | PD ---
Data Data Last Documented VS Vital Signs Date Time Temp Pulse Resp B/P (MAP) Pulse Ox O2 Delivery O2 Flow Rate FiO2 06/20/17 20:18 98.6 109 16 139/79 (99) 97 Room Air Orders Orders Electrocardiogram (06/20/17 20:36) Complete Blood Count With Diff (06/20/17 20:36) Comprehensive Metabolic Panel (06/20/17 20:36) Magnesium (Mg) (06/20/17 20:36) Prothrombin Time / Inr (Pt) (06/20/17 20:36) Act Partial Throm Time (Ptt) (06/20/17 20:36) Troponin I (06/20/17 20:36) Chest, Single Ap (06/20/17 20:36) Ecg Monitoring (06/20/17 20:36) Bilateral Bp Monitoring (06/20/17 20:36) Iv Access Insert/Monitor (06/20/17 20:36) Oximetry (06/20/17 20:36) Sodium Chloride 0.9% Flush (Ns Flush) (06/20/17 20:45) Urinalysis - C+S If Indicated (06/20/17 21:01) Urine Culture (06/20/17 21:00) Potassium Chloride (Kcl) (06/20/17 21:45) Ed Discharge Order (06/20/17 21:53) Labs Laboratory Tests Test 06/20/17 20:45 06/20/17 21:00 White Blood Count 10.2 TH/MM3 Red Blood Count 4.17 MIL/MM3 Hemoglobin 12.6 GM/DL Hematocrit 35.9 % Mean Corpuscular Volume 86.2 FL Mean Corpuscular Hemoglobin 30.3 PG Mean Corpuscular Hemoglobin Concent 35.1 % Red Cell Distribution Width 12.7 % Platelet Count 342 TH/MM3 Mean Platelet Volume 6.7 FL Neutrophils (%) (Auto) 62.0 % Lymphocytes (%) (Auto) 28.9 % Monocytes (%) (Auto) 7.0 % Eosinophils (%) (Auto) 1.5 % Basophils (%) (Auto) 0.6 % Neutrophils # (Auto) 6.3 TH/MM3 Lymphocytes # (Auto) 2.9 TH/MM3 Monocytes # (Auto) 0.7 TH/MM3 Eosinophils # (Auto) 0.1 TH/MM3 Basophils # (Auto) 0.1 TH/MM3 CBC Comment DIFF FINAL Differential Comment Prothrombin Time 10.0 SEC Prothromb Time International Ratio 0.9 RATIO Activated Partial Thromboplast Time 25.7 SEC Blood Urea Nitrogen 11 MG/DL Creatinine 0.92 MG/DL Random Glucose 85 MG/DL Total Protein 6.0 GM/DL Albumin 2.9 GM/DL Calcium Level 8.3 MG/DL Magnesium Level 1.5 MG/DL Alkaline Phosphatase 51 U/L Aspartate Amino Transf (AST/SGOT) 23 U/L Alanine Aminotransferase (ALT/SGPT) 27 U/L Total Bilirubin 0.2 MG/DL Sodium Level 134 MEQ/L Potassium Level 2.8 MEQ/L Chloride Level 95 MEQ/L Carbon Dioxide Level 30.8 MEQ/L Anion Gap 8 MEQ/L Estimat Glomerular Filtration Rate 63 ML/MIN Troponin I LESS THAN 0.02 NG/ML Urine Color LIGHT-YELLOW Urine Turbidity CLEAR Urine pH 7.0 Urine Specific [place] 1.008 Urine Protein NEG mg/dL Urine Glucose (UA) NEG mg/dL Urine Ketones NEG mg/dL Urine Occult Blood NEG Urine Nitrite NEG Urine Bilirubin NEG Urine Urobilinogen LESS THAN 2.0 MG/DL Urine Leukocyte Esterase LARGE Urine RBC 1 /hpf Urine WBC 65 /hpf Urine Squamous Epithelial Cells 1 /hpf Urine Transitional Epithelial Cells 8 /hpf Urine Bacteria RARE /hpf Microscopic Urinalysis Comment CULTURE INDICATED MDM Supervised Visit with NAIF: Yes Narrative Course The history, exam, and medical decision-making in the associated mid-level provider note were completed with my assistance. I reviewed and agree with the findings presented. I attest that I had a [id number] encounter with the patient on the same day, and personally performed and documented my assessment and findings in the medical record. *My assessment and Findings: 56 year-old woman with recent admission for electrolyte abnormalities. Etiology seems unclear. She had some acute kidney injury and evidence of dehydration. She had hyponatremia and hypokalemia. She was discharged couple days ago and at home health to recheck her labs. She is having no symptoms now but had a low sodium. She looks well. Potassium. She looks well. Potassium remains low. We'll give her an increased dose here, states she might a Mr. for couple days. We'll encourage compliance. Recommend close outpatient follow-up. Diagnosis Primary Impression: Hypokalemia Additional Impression: Urinary tract infection Qualified Codes: N39.0 - Urinary tract infection, site not specified Referrals: Primary Care Physician Patient Instructions: General Instructions, Urinary Tract Infection in Women ( ED), Hypokalemia (ED) Additional Instruction: Rest, hydrate. Resume normal, gentle activities as tolerated. Continue with home medications, including oral potassium, as prescribed. Take all antibiotics as prescribed. Follow-up with the primary care as discussed. Return to the ED for any urgent or emergent medical condition. Scripts Nitrofurantoin Monohydrate Macrocrystals (Macrobid) 100 Mg Cap 100 MG PO BID for Infection for 7 Days, #14 CAP 0 Refills Prov: Sam Pineda MD 06/20/17 Disposition: 01 DISCHARGE HOME Condition: Stable Sam Pineda MD Jun 20, 2017 22:00
--- NOTE | 2017-06-21 12:36 | EKG ---
Date Performed: 06/20/2017 Time Performed: 20:38:24 PTAGE: 56 years EKG: SINUS TACHYCARDIA ABNORMAL RHYTHM ECG PREVIOUS TRACING : 06/15/2017 13.10 Since previous tracing, QT interval no longer prolonged and the previously seen ST elevation is no longer present. DOCTOR: Robert Villanueva Interpretating Date/Time 06/21/2017 12:35:24
== END 2017-06-20 22:14 | disposition home or self-care (01) ==
LOC: NEPC 20:17
DX: E87.6 Hypokalemia (principal); N39.0 Urinary tract infection, site not specified; R11.10 Vomiting, unspecified; R60.0 Localized edema; R94.31 Abnormal electrocardiogram [ECG] [EKG]; I10 Essential (primary) hypertension; E11.9 Type 2 diabetes mellitus without complications; Z72.0 Tobacco use; Z87.39 Personal history of other diseases of the musculoskeletal system and connective tissue; Z87.09 Personal history of other diseases of the respiratory system; Z86.59 Personal history of other mental and behavioral disorders; Z86.79 Personal history of other diseases of the circulatory system; Z87.19 Personal history of other diseases of the digestive system; Z86.69 Personal history of other diseases of the nervous system and sense organs
CPT/HCPCS: 71010; 80053; 81001; 83735; 84484; 85025; 85610; 85730; 87086; 93005; 99285

== ENCOUNTER 2018-01-16 11:35 | Emergency (ER) | payer MEDICARE, MEDICAID ==
[~2018-01-16] VITALS: Ht 162.6 cm; Wt 60.0 kg
[~2018-01-16 11:35] MED LIST changes: +MACR100C2 PO
[2018-01-16 11:40] VITALS: BP 143/77; PULSE 73; RESP 16; TEMP 98.7; O2SAT 97
[2018-01-16] MEDS ORDERED: OMEP40CA2 PO (12:08)
[2018-01-16] MEDS ORDERED: IBUP1TAB7 PO (12:08)
[2018-01-16] MEDS ORDERED: PERC10TA27 PO (12:08)
[2018-01-16] MEDS ORDERED: BACL10TA PO (12:08)
[2018-01-16] MEDS ORDERED: CELE20TA PO (12:08)
[2018-01-16] MEDS ORDERED: FURO1TAB62 PO (13:00)
--- NOTE | 2018-01-16 13:00 | PD ---
HPI Chief Complaint: Skin Problem Time Seen by Provider: 12:43 Travel History International Travel<30 days: No Contact w/Intl Traveler<30days: No Traveled to known affect area: No History of Present Illness HPI 57-year-old female complains of burning itching rash and swelling of lower extremity. Patient has history of bipolar disorder. Patient was given prescription for citalopram recently. Patient states that she has increasing lower extremity swelling and burning itching rash lower extremities since then. Patient also on hydroxyzine, Percocet, ibuprofen, baclofen, omeprazole also. Patient has history of seizure, status post CVA, arthritis, COPD, GERD. Patient denies any fever chills. Patient denies any chest pain or shortness of breath. PFSH Past Medical History Arthritis: Yes Asthma: Yes Anxiety: Yes Cardiovascular Problems: Yes COPD: Yes Cerebrovascular Accident: Yes (1990) Diabetes: No Diminished Hearing: No GERD: Yes Genitourinary: Yes (KIDNEY STONES REMOVED ) Insomnia: Yes Kidney Stones: Yes Immunizations Current: No Seizures: Yes Tetanus Vaccination: Unknown Influenza Vaccination: Yes ?: Not Menopausal: Yes : 3 Para: 3 Past Surgical History Cholecystectomy: Yes Genitourinary Surgery: Yes (GALLSTONES REMOVED) Hysterectomy: Yes Social History Alcohol Use: No Tobacco Use: No Substance Use: No Allergies-Medications (Allergen,Severity, Reaction): Coded Allergies: clonazepam (Unverified Allergy, Mild, WELTS, 01/16/18) Reported Meds & Prescriptions Reported Meds & Active Scripts Active Reported Omeprazole 40 Mg Cap 40 Mg PO DAILY Baclofen 10 Mg Tab 10 Mg PO TID Ibuprofen 800 Mg Tab 800 Mg PO Q8H PRN Percocet (Oxycodone-Acetaminophen) 10-325 mg Tab 1 Tab PO Q6H PRN Celexa (Citalopram Hydrobromide) 20 Mg Tab 20 Mg PO DAILY Hydroxyzine HCl 25 Mg Tab 25 Mg PO QID Review of Systems General / Constitutional: No: Fever Eyes: No: Visual changes HENT: No: Headaches Cardiovascular: No: Chest Pain or Discomfort Respiratory: No: Shortness of Breath Gastrointestinal: No: Abdominal Pain Genitourinary: No: Dysuria Musculoskeletal: No: Pain Skin: Positive Rash Neurologic: No: Weakness Psychiatric: No: Depression Endocrine: No: Polydipsia Hematologic/Lymphatic: No: Easy Bruising Physical Exam Narrative GENERAL: Well-nourished, well-developed patient. SKIN: Focused skin assessment warm/dry. HEAD: Normocephalic. EYES: No scleral icterus. No injection or drainage. NECK: Supple, trachea midline. No JVD or lymphadenopathy. CARDIOVASCULAR: Regular rate and rhythm without murmurs, gallops, or rubs. RESPIRATORY: Breath sounds equal bilaterally. No accessory muscle use. GASTROINTESTINAL: Abdomen soft, non-tender, nondistended. MUSCULOSKELETAL: No cyanosis.. BACK: Nontender without obvious deformity. No CVA tenderness. Patient has patchy macular rash bilateral lower extremity. No redness no heat no tenderness on palpation. +1 pitting edema bilateral lower extremity. No tenderness on palpation of the calf area. No evidence of DVT. Data Data Last Documented VS Vital Signs Date Time Temp Pulse Resp B/P (MAP) Pulse Ox O2 Delivery O2 Flow Rate FiO2 01/16/18 11:40 98.7 73 16 143/77 (99) 97 MDM Medical Decision Making Medical Screen Exam Complete: Yes Emergency Medical Condition: Yes Differential Diagnosis Differential diagnosis including dependent edema, dermatitis, cellulitis, DVT. Narrative Course 57-year-old female with complaints of bilateral extremity swelling and itching and burning rash. Patient is on multiple medications with antihistamine side effect. Diagnosis Primary Impression: Dependent edema Additional Impression: Dermatitis Patient Instructions: General Instructions Additional Instructions: Advised patient to discuss side effect medication with her physicians. Adjust medications as needed. Keep legs elevated. Decreased p.o. fluid intake. Lasix 20 mg daily 3 days. Advised potassium rich diet while on Lasix. Follow- up with personal physician. Return if worse. Med/Other Pt SpecificInfo: Prescription(s) given Scripts Furosemide (Lasix) 20 Mg Tab 20 MG PO DAILY, #3 TAB 0 Refills Prov: Joaquin Griffith MD 01/16/18 Disposition: 01 DISCHARGE HOME Condition: Stable Joaquin Griffith MD Jan 16, 2018 13:00
== END 2018-01-16 13:14 | disposition home or self-care (01) ==
LOC: NEPD 11:35
DX: R60.0 Localized edema (principal); L30.9 Dermatitis, unspecified; K21.9 Gastro-esophageal reflux disease without esophagitis
CPT/HCPCS: 99283